=== PATIENT | female | born 1930 | race Caucasian/White ===

== ENCOUNTER 2017-07-23 06:09 | Inpatient (IN) | payer MEDICARE, OTHER ==
[~2017-07-23] VITALS: Ht 162.6 cm; Wt 69.4 kg
[~2017-07-23 06:09] MED LIST: AMOXICILLIN 50500 M1; AMOXICILLIN 50500 MG PO; ASPIRIN EC81 M1 PO; ASTELIN30 ML; B12INJ SUBQ; ERYTHROMYCIN250 M1 PO; FLEXERIL PO; FLUZONE 2045 MCG/011; GABAPENTIN 100100 MG PO; GABAPENTIN100 MG PO; LAMICTAL 25 MG25 M1 PO; LEVAQUIN 500 M500 MG PO; MEDROLDOSEPACK PO; MULTIVITAMINS PO; NASAL MOISTURIZ30 ML; OMEPRAZOLE 20 M20 MG PO; PNEUMOVAX25 MCG/0.5; PREDNISONE 20 M20 M1 PO; PRINIVIL20 MG PO; PROTONIX40 M1 PO; REGLAN 5 MG TAB5 M1; SINGULAIR 10 MG10 M1 PO; VENTOLIN HFA 1818 GM INH; VITAMIN D3400 UNI1
[2017-07-23 06:14] VITALS: BP 179/103
[2017-07-23 07:05] LABS: ABSOLUTE BASOPHILS 0.1 thou/uL (0.0-0.2); ABSOLUTE LYMPHOCYTES 2.4 thou/uL (0.8-5.3); ABSOLUTE MONOCYTES 0.5 thou/uL (0.0-1.2); ABSOLUTE NEUTROPHILS 3.8 thou/uL (1.6-8.1); BASOPHILS 1.4 %; EOSINOPHILS 0.5 %; HEMATOCRIT 43.8 % (37.0-47.0); HEMOGLOBIN 14.6 gm/dL (12.0-15.0); LYMPHOCYTES 34.8 %; MCH 31.7 pg (26.0-34.0); MCHC 33.3 g/dL (28.0-37.0); MONOCYTES 7.7 %; MPV 8.1 fl. (7.2-11.1); NUCLEATED RBCS 0 /100WBC; PLATELET COUNT* 252 thou/uL (150-400); POLYS 55.6 %; RBC 4.61 mil/uL (4.20-5.00); RDW-CV 13.8 % (10.5-14.5); WBC 6.9 thou/uL (4.0-11.0)
[2017-07-23 07:09] LABS: CREATININE 1.1 mg/dL (0.6-1.3); POTASSIUM 4.2 mmol/L (3.5-5.1)
[2017-07-23 07:14] LABS: ALBUMIN 3.6 g/dL (3.4-5.0); TOTAL BILIRUBIN 0.5 mg/dL (<0.1-1.0); TOTAL PROTEIN 6.9 g/dL (6.4-8.2)
[2017-07-23 07:50] LABS: APTT 24.3 Seconds (25.0-31.3); PROTIME 9.9 Seconds (9.20-11.50)
[2017-07-23 07:53] LABS: NT-PRO BRAIN NAT PEPTIDE 766 pg/mL (<300); TROPONIN-I LEVEL <0.06 ng/mL (<0.06)
[2017-07-23 08:41] VITALS: BP 147/101
[2017-07-23 09:00] VITALS: BP 158/72
--- NOTE | 2017-07-23 09:30 | NUR ---
PATIENT CAME TO THE FLOOR FROM THE ER IN STABLE CONDITION. PATIENTS DAUGHTER IS IN THE ROOM. PATIENT TRANSFERRED FROM THE CART TO THE BED WITH A STEADY GAIT. ADMISSION ASSESSMENT, EDUCATION AND ORIENTTATION TO THE ROOM DONE WTIH ALL QUESTIONS ANSWERED. CALL LIGHT IS IN REACH, WILL CONTINUE TO MONITOR.
--- NOTE | 2017-07-23 15:00 | EKG ---
[place] [address] ELECTROCARDIOGRAM REPORT Name: DES RUVALCABA Room: [address] IN ..#: [id number] Admission: 07/23/17 Attend Phys: Bill Severino, Discharge: Date of : [birth year] Report #: [id number] THIS REPORT FOR: //name// [facility] ED Test Date: 2017-07-23 Test Time: 07:34:13 Pat Name: DES RUVALCABA Department: Room: [facility] Gender: F Velvet Cutter: MS : 1930 Requested By: Kev Mendosa Order Number: [id number] MD: Ruben Rodriguez Measurements Intervals [place] Rate: 90 P: 80 CT: 196 QRS: 19 QRSD: 108 T: 61 QT: 360 QTc: 441 Interpretive Statements Sinus rhythm Ventricular premature complex Left atrial enlargement LVH with secondary repolarization abnormality Compared to ECG 09/23/2013 04:07:44 Ventricular premature complex(es) now present Atrial abnormality now present Left ventricular hypertrophy now present Early repolarization now present Sinus bradycardia no longer present ST (T wave) deviation no longer present Electronically Signed On 07-23-2017 14:59:57 CDT by Ruben Rodriguez [email or web address] <ELECTRONICALLY SIGNED> By: Ruben Rodriguez MD, FACC 07/23/17 1459 3 3 Ruben Rodriguez MD, [facility] /EPI
[2017-07-23 15:59] VITALS: BP 113/61
--- NOTE | 2017-07-23 17:33 | NUR ---
PATIENT IS ALERT AND ORIENTED TODAY VERY PLEASANT. NO COMPLAINTS OF ANY KIND TODAY. SEVERAL QUESTIONS REGARDING CARE THAT HAS BEEN ANSWERED. VITAL SIGNS STABLE ON 2 LITERS OF OXYGEN THROUGH NASAL CANNULA. CALL LIGHT IS IN REACH, WILL CONTINUE TO MONITOR.
[2017-07-24 01:59] VITALS: BP 130/66
[2017-07-24 04:17] LABS: HEMATOCRIT 40.5 % (37.0-47.0); HEMOGLOBIN 14.1 gm/dL (12.0-15.0); MCH 32.6 pg (26.0-34.0); MCHC 34.7 g/dL (28.0-37.0); MCV 94.1 fL (80.0-100.0); MPV 8.3 fl. (7.2-11.1); RBC 4.31 mil/uL (4.20-5.00); RDW-CV 14.1 % (10.5-14.5); WBC 9.2 thou/uL (4.0-11.0)
[2017-07-24 04:31] LABS: CALCIUM 10.2 mg/dL (8.5-10.1); CREATININE 1.3 mg/dL (0.6-1.3); MAGNESIUM 2.2 mg/dL (1.8-2.4)
[2017-07-24 04:33] LABS: POTASSIUM 5.9 mmol/L (3.5-5.1)
--- NOTE | 2017-07-24 06:16 | NUR ---
ASSESSMENT COMPLETE. PT SLEPT THROUGH THE NIGHT WITHOUT ANY CONCERNS. PT IS ON ROOM AIR WITH [place]QAUTE SATS. PT REPORTS DRY, NON PROD COUGH DURING THE NIGHT. PT HAS IV IN RIGHT FOREARM, SALINE LOCKED AND FLUSHES WITHOUT DIFFICULTY. PT SKIN INTACT. PT IS UP AD LONG WITH STEADY GAIT. PT DENIES PAIN AND N/V. SEE ASSESSMENT AND VITALS FOR OTHER DETAILS. CALL LIGHT WITHIN REACH, WILL CONTINUE PLAN OF CARE
[2017-07-24 08:35] VITALS: BP 125/68
--- NOTE | 2017-07-24 11:04 | NUR ---
CM SPOKE TO THE PATIENT TO DISCUSS HOME SITUATION, DISCHARGE PLANNING, AND TO INFORM OF THE ROLE OF CM. PATIENT ALERT, ORIENTED, AND INDEPENDENT WITH ADL'S. PATIENT IS VERY ACTIVE, AND DRIVES. PATIENT OWNS A WALKER AND CANE,BUT DOES NOT USE THEM. PATIENT HAS NO HX OF HH OR SNF. CM WILL REMAIN AVAILABLE TO ASSIST AND FOLLOW NEEDED.
[2017-07-24 16:03] VITALS: BP 135/75
--- NOTE | 2017-07-24 17:15 | NUR ---
PATIENT HAS BEEN A/O X 4 THIS SHIFT. PATIENT GIVEN TYLENOL PER REQUEST THIS AFTERNOON WITH RELIEF NOTED. STARTED ON TESSALON PERLES THIS SHIFT WITH RELIEF. IV ANTIBIOTICS INFUSED. PATIENT UP AD LONG IN ROOM AND HALLWAYS. TO HAVE REPEAT CHEST XRAY IN AM AND REPEAT LABS. HOURLY ROUNDING COMPLETED. CALL LIGHT WITHIN REACH. WILL CONTINUE WITH PLAN OF CARE.
[2017-07-24 21:15] VITALS: BP 115/66
[2017-07-25 04:17] LABS: HEMATOCRIT 42.1 % (37.0-47.0); HEMOGLOBIN 14.6 gm/dL (12.0-15.0); MCH 32.5 pg (26.0-34.0); MCHC 34.6 g/dL (28.0-37.0); MPV 8.6 fl. (7.2-11.1); RBC 4.48 mil/uL (4.20-5.00); RDW-CV 13.6 % (10.5-14.5)
[2017-07-25 04:30] LABS: CALCIUM 9.7 mg/dL (8.5-10.1); CREATININE 1.3 mg/dL (0.6-1.3); MAGNESIUM 2.3 mg/dL (1.8-2.4); POTASSIUM 4.7 mmol/L (3.5-5.1)
--- NOTE | 2017-07-25 05:47 | NUR ---
PT SLEPT MOST OF SHIFT. ASSESSMENT DOCUMENTED. MEDS GIVEN PER E-MAR. IV PATENT. NO REPORTS OF PAIN OR NAUSEA. PT UP AD LONG IN ROOM. WILL CONTINUE WITH PLAN OF CARE.
[2017-07-25 08:15] VITALS: BP 113/68
[2017-07-25 16:00] VITALS: BP 122/72
--- NOTE | 2017-07-25 16:47 | NUR ---
PATIENT HAS BEEN A/O X 4 THIS SHIFT. CONTINUES ON ROOM AIR AND RT TREATMENTS. GIVEN TESSALON PERLE THIS AM WITH RELIEF. SALINE LOCK PATENT AND ANTIBIOTICS INFUSED ORDERED. IV STEROIDS GIVEN ORDERED. UP AD LONG IN ROOM. SHOWERED THIS SHIFT AND AMBULATED TO SHOWER ROOM FROM PATIENT ROOM. CHEST XRAY COMPLETED THIS SHIFT. PATIENT TO CONTRERAS TO ORAL STEROIDS IN AM. DC PLANNING IN PROCESS, TENTATIVE DISCHARGE IN THE NEXT 1-[address] CHIANG. HOURLY ROUNDING COMPLETED. CALL LIGHT WITHIN REACH. WILL CONTINUE WITH PLAN OF CARE.
[2017-07-25 22:00] VITALS: BP 118/60
--- NOTE | 2017-07-26 05:24 | NUR ---
PATIENT SLEPT WELL DURING THIS SHIFT. PT UP TO BATHROOM WITH SLOW STEADY GAIT. PT WITH SALINE LOCK IN RT FOREARM. PT DENIES PAIN/NAUSEA ON THIS SHIFT. PT IS ON ROOM AIR. PT WITH DIMINISHED LUNG SOUNDS WITH WHEEZES. PT ABLE TO SWALLOW PILLS WITH NO PROBLEMS. PT DENIES NEEDS AT THIS TIME. FREQUENTLY USED ITEMS AND CALL LIGHT WITHIN REACH. SIDERAILS UPX2. WILL CONTINUE TO MONITOR.
[2017-07-26 08:09] VITALS: BP 133/77
--- NOTE | 2017-07-26 12:07 | NUR ---
ORDERS RECEIVED. CHART REVIEWED. NSG NOTES INDICATE PT HAS BEEN UP AD LONG IN ROOM AND IN HALLS WITH STEADY GAIT. NSG AND PT CONFIRMED. PT HAS NO CONCERNS REGARDING MOBILITY. NO ACUTE P.T. INTERVENTION INDICATED AT THIS TIME.
[2017-07-26 14:50] VITALS: BP 122/63
--- NOTE | 2017-07-26 16:42 | NUR ---
SW met with pt to discuss safe dc planning and presented to pt that possible for pt to be ready to dc home tomorrow or by Monday. Pt expressed understanding and did not express any need for any DME or HH services. Pt did not present any concerns and was hopeful to be completely clear--from a congested feeling in her chest when she coughs prior to dc home but pt also said that she understood that she may be able to continue to heal at home. SW to continue to remain available to assist with any dc needs.
--- NOTE | 2017-07-26 20:19 | NUR ---
PATIENT HAS BEEN A/O X 4 THIS SHIFT. GIVEN TYLENOL THIS SHIFT FOR PLEURITIC PAIN WITH RELIEF. CONTINUES ON ROOM AIR AND SCHEDULED RT TREATMENTS. SALINE LOCK PATENT, IV ANTIBIOTICS INFUSED. PT/OT ORDERED. UP AD LONG IN ROOM AND AMBULATING IN HALLWAYS. REPEAT LABS ORDERED FOR THE AM. TENTATIVE DISCHARGE ON MONDAY. HOURLY ROUNDING COMPLETED. CALL LIGHT WITHIN REACH. WILL CONTINUE WITH PLAN OF CARE.
[2017-07-27 00:21] VITALS: BP 128/86
[2017-07-27 04:21] LABS: HEMATOCRIT 41.9 % (37.0-47.0); HEMOGLOBIN 14.2 gm/dL (12.0-15.0); MCH 32.1 pg (26.0-34.0); MCV 94.5 fL (80.0-100.0); MPV 8.2 fl. (7.2-11.1); NUCLEATED RBCS 0 /100WBC; PLATELET COUNT* 311 thou/uL (150-400); RBC 4.43 mil/uL (4.20-5.00); RDW-CV 13.7 % (10.5-14.5); WBC 13.4 thou/uL (4.0-11.0)
[2017-07-27 04:29] LABS: ALBUMIN 3.1 g/dL (3.4-5.0); CALCIUM 9.6 mg/dL (8.5-10.1); CREATININE 1.2 mg/dL (0.6-1.3); POTASSIUM 4.6 mmol/L (3.5-5.1); TOTAL BILIRUBIN 0.3 mg/dL (<0.1-1.0); TOTAL PROTEIN 6.3 g/dL (6.4-8.2)
[2017-07-27 05:56] LABS: ABSOLUTE EOSINOPHILS 0.1 thou/uL (0.0-0.7); ABSOLUTE LYMPHOCYTES 4.7 thou/uL (0.8-5.3); ABSOLUTE MONOCYTES 1.3 thou/uL (0.0-1.2); ABSOLUTE NEUTROPHILS 7.2 thou/uL (1.6-8.1); ANISOCYTOSIS 1+; PLATELET ESTIMATE ADEQUATE; POIKILOCYTOSIS 1+
--- NOTE | 2017-07-27 06:16 | NUR ---
ASSESSMENT COMPLETE. PT SLEPT THROUGH THE NIGHT WITHOUT ANY CONCERNS. PT HAS ADEQUATE SATS ON ROOM AIR. PT DENIES PAIN. PT IS UP AD LONG WITH STEADY GAIT. SEE ASSESSMENT AND VITALS FOR OTHER DETAILS. CALL LIGHT WITHIN REACH, WILL CONTINUE PLAN OF CARE
[2017-07-27 08:25] VITALS: BP 129/70
--- NOTE | 2017-07-27 12:50 | NUR ---
ORDER RECEIVED FOR "OT EVALUATION AND TREATMENT". COMPLETED CHART REVIEW AND SPOKE BRIEFLY WITH PATIENT. PT HAS BEEN UP AD LONG. PT STATING THAT SHE HAS BEEN TAKING SPONGEBATHES AND USING TOILET WITHOUT ASSIST. PT STATING THAT SHE DOES NOT HAVE NEED FOR OCCUPATIONAL THERAPY SERVICES AT THIS TIME. PLAN TO D/C FROM SKILLED OT SERVICES AT THIS TIME.
[2017-07-27 15:49] VITALS: BP 134/78
--- NOTE | 2017-07-27 18:23 | NUR ---
PATIENT RESTING IN BED. PATIENT DENIES ANY PAIN. PAIENT IS UP AD LONG IN ROOM AND WALKS IN HALLS. PATIENT IS ON ROOM AIR. LUNG SOUUNDS ARE CRACKLY ON RIGHT AND HAS COMPLAINTS OF PAIN WITH COUGHING BUT DENIES NEED FOR MEDICATION. PATIENT DENIES ANY NEEDS AT THIS TIME. CALL LIGHT WITHIN REACH. WILL CONTINUE TO MONITOR.
[2017-07-27 19:51] VITALS: BP 117/69
[2017-07-27 23:30] VITALS: BP 118/59
--- NOTE | 2017-07-28 05:50 | NUR ---
ASSUMED CARE OF PT FROM GEOVANNA MCCORMACK AT 0000, I COCNCUR WITH HER ASSESSMENT. VS STABLE. PT VOICED NO COMPLAINTS AND SLEPT THROUGH THE NIGHT. WILL CONTINUE PLAN OF CARE.
[2017-07-28 16:16] VITALS: BP 123/74
--- NOTE | 2017-07-28 17:54 | NUR ---
PATIENT IS ALERT AND ORIENTED TODAY VERY PLEASANT, UP AD LONG IN ROOM, NO COMPLAINTS TODAY. VITAL SIGNS STABLE ON ROOM AIR. CALL LIGHT IS IN REACH, WILL CONTINUE TO MONTIOR.
[2017-07-28 19:45] VITALS: BP 111/66
[2017-07-29 05:08] LABS: CALCIUM 9.6 mg/dL (8.5-10.1); CREATININE 1.2 mg/dL (0.6-1.3); POTASSIUM 5.3 mmol/L (3.5-5.1)
[2017-07-29 05:09] LABS: ABSOLUTE BASOPHILS 0.1 thou/uL (0.0-0.2); ABSOLUTE EOSINOPHILS 0.1 thou/uL (0.0-0.7); ABSOLUTE NEUTROPHILS 10.5 thou/uL (1.6-8.1); BASOPHILS 0.6 %; EOSINOPHILS 0.5 %; HEMATOCRIT 44.8 % (37.0-47.0); HEMOGLOBIN 14.7 gm/dL (12.0-15.0); LYMPHOCYTES 25.6 %; MCH 31.8 pg (26.0-34.0); MCHC 32.9 g/dL (28.0-37.0); MCV 96.6 fL (80.0-100.0); MONOCYTES 6.3 %; MPV 8.7 fl. (7.2-11.1); NUCLEATED RBCS 0 /100WBC; PLATELET COUNT* 303 thou/uL (150-400); RBC 4.64 mil/uL (4.20-5.00); RDW-CV 13.9 % (10.5-14.5); WBC 15.6 thou/uL (4.0-11.0)
--- NOTE | 2017-07-29 05:45 | NUR ---
PT SLEPT MOST OF SHIFT. ASSESSMENT DOCUMENTED. MEDS GIVEN PER E-MAR. IV PATENT. PT SCRAPED ARM ON BEDSIDE TABLE AND AQUIRED SKIN TEAR. PICTURE TAKEN, WOUND CLEANSED AND DRESSED. WILL CONTINUE WITH PLAN OF CARE.
[2017-07-29 08:05] VITALS: BP 126/67
[2017-07-29 16:00] VITALS: BP 105/64
--- NOTE | 2017-07-29 16:58 | NUR ---
PATIENT RESTING IN BED. PATIENT IS UP AD LONG IN ROOM. PATIENT DENIES ANY PAIN. PATIENT HAS GOOD APPETITE. PATIENT IS ON ROOM AIR. PATIENT DENIES ANY NEEDS AT THIS TIME. CALL LIGHT WITHIN REACH. WILL CONTINUE TO MONITOR.
[2017-07-29 20:15] VITALS: BP 95/59
[2017-07-30 04:12] LABS: HEMATOCRIT 41.3 % (37.0-47.0); MCHC 33.8 g/dL (28.0-37.0); MCV 94.8 fL (80.0-100.0); MPV 7.8 fl. (7.2-11.1); RBC 4.36 mil/uL (4.20-5.00); RDW-CV 13.7 % (10.5-14.5); WBC 15.9 thou/uL (4.0-11.0)
[2017-07-30 04:24] LABS: CALCIUM 9.3 mg/dL (8.5-10.1); CREATININE 1.3 mg/dL (0.6-1.3); MAGNESIUM 2.3 mg/dL (1.8-2.4); POTASSIUM 5.1 mmol/L (3.5-5.1)
--- NOTE | 2017-07-30 06:27 | NUR ---
PT SLEPT MOST OF SHIFT. ASSESSMENT DOCUMENTED. MEDS GIVEN PER E-JUN. IV PATENT. WOUND ON RIGHT ARM CLEANSED AND REDRESSED. WILL CONTINUE WITH PLAN OF CARE.
[2017-07-30 08:35] VITALS: BP 105/66
[2017-07-30] MEDS ORDERED: VENTOLIN HFA 1818 GM INH (09:13)
[2017-07-30] MEDS ORDERED: AZITHROMYCIN 2250 MG PO (09:13)
[2017-07-30] MEDS ORDERED: BENZONATATE100 MG PO (09:13)
[2017-07-30] MEDS ORDERED: PREDNISONE 10 M10 M1 PO (09:13)
[2017-07-30] MEDS ORDERED: GUAIFENESIN DM1 EACH PO (09:13)
[2017-07-30] MEDS ORDERED: CEFDINIR300 MG PO (09:13)
[2017-07-30 10:34] VITALS: BP 105/66
--- NOTE | 2017-07-30 11:10 | NUR ---
PATIENT DISCHARGED TO HOME. DISCHARGE PAPERS REVIEWED AND SIGNED. PRESCRIPTIONS AND INFORMATION SHEETS GIVEN. IV REMOVED. PATIENT ASSISTED WITH PACKING BELONGINGS. PATIENT DENIES ANY FURTHER NEEDS. PATIENT TAKEN AMBULATORY TO EXIT. LEFT WITH DAUGHTER.
== END 2017-07-30 11:10 | disposition home or self-care (01) | DRG 177 ==
LOC: M.ERS 06:09 → M.3W 07:57 → M.TBA-ER 07:57 → M.3W 08:53
PROVIDERS: Family Medicine; Internal Medicine; Personal Emergency Response Attendant; ADMIT Family Medicine
DX: J15.6 Pneumonia due to other Gram-negative bacteria (principal); J96.01 Acute respiratory failure with hypoxia; I10 Essential (primary) hypertension; K21.9 Gastro-esophageal reflux disease without esophagitis; J98.01 Acute bronchospasm; Z90.5 Acquired absence of kidney; Z90.710 Acquired absence of both cervix and uterus; Z79.899 Other long term (current) drug therapy; Z85.528 Personal history of other malignant neoplasm of kidney; Z88.1 Allergy status to other antibiotic agents; Z88.5 Allergy status to narcotic agent; Z82.49 Family history of ischemic heart disease and other diseases of the circulatory system

== ENCOUNTER → 2018-01-03 | Outpatient (CLI) | payer MEDICARE, OTHER ==
[~2018-01-03] MED LIST changes: +AZITHROMYCIN 2250 MG PO; +BENZONATATE100 MG PO; +CEFDINIR300 MG PO; +GUAIFENESIN DM1 EACH PO; +PREDNISONE 10 M10 M1 PO
== END ==
LOC: M.RAD 08:07
DX: Z12.31 Encounter for screening mammogram for malignant neoplasm of breast (principal); I10 Essential (primary) hypertension; K21.9 Gastro-esophageal reflux disease without esophagitis

== ENCOUNTER 2018-07-04 19:00 | Emergency (ER) | payer MEDICARE, OTHER ==
[~2018-07-04] VITALS: Ht 152.4 cm; Wt 59.0 kg
[2018-07-04 19:59] LABS: ABSOLUTE BASOPHILS 0.1 thou/uL (0.0-0.2); ABSOLUTE EOSINOPHILS 0.1 thou/uL (0.0-0.7); ABSOLUTE LYMPHOCYTES 2.4 thou/uL (0.8-5.3); ABSOLUTE MONOCYTES 0.5 thou/uL (0.0-1.2); ABSOLUTE NEUTROPHILS 4.9 thou/uL (1.6-8.1); BASOPHILS 1.1 %; EOSINOPHILS 1.8 %; HEMATOCRIT 42.3 % (37.0-47.0); HEMOGLOBIN 14.3 gm/dL (12.0-15.0); LYMPHOCYTES 29.5 %; MCH 31.7 pg (26.0-34.0); MCHC 33.7 g/dL (28.0-37.0); MONOCYTES 6.6 %; NUCLEATED RBCS 0 /100WBC; PLATELET COUNT* 276 thou/uL (150-400); RDW-CV 14.7 % (10.5-14.5)
[2018-07-04 20:01] LABS: URINE BILIRUBIN NEGATIVE (Negative); URINE BLOOD 1+ (Negative); URINE CLARITY CLEAR; URINE COLOR YELLOW; URINE GLUCOSE-RANDOM NEGATIVE (Negative); URINE KETONES NEGATIVE (Negative); URINE NITRITE-REFLEX NEGATIVE (Negative); URINE PROTEIN NEGATIVE (Negative); URINE SPECIFIC GRAVITY <= 1.005 (1.005-1.030); URINE UROBILINOGEN 0.2 E.U./dl (0.2-1.0)
[2018-07-04 20:03] LABS: ALBUMIN 3.6 g/dL (3.4-5.0); CALCIUM 9.7 mg/dL (8.5-10.1); CREATININE 1.1 mg/dL (0.6-1.3); POTASSIUM 4.2 mmol/L (3.5-5.1); TOTAL BILIRUBIN 0.3 mg/dL (<0.1-1.0); TOTAL PROTEIN 6.4 g/dL (6.4-8.2)
[2018-07-04 20:06] LABS: URINE LEUKOCYTES-REFLEX 3+ (Negative)
[2018-07-04 20:14] LABS: BACTERIA-REFLEX 1-9 Few /HPF (None Seen); SQUAMOUS NONE SEEN /LPF (0-3); URINE RBC 0-2 Rare /HPF (0-2)
[2018-07-04 20:15] LABS: CASTS None Seen /LPF (None Seen); CRYSTALS None Seen /LPF (None Seen); WBC CLUMPS Few (None Seen)
[2018-07-04] MEDS ORDERED: MACROBID 100 M100 M2 PO (21:41)
[2018-07-04 22:01] VITALS: BP 171/93
== END 2018-07-04 22:04 | disposition home or self-care (01) ==
LOC: M.ERS 19:00
PROVIDERS: Nurse Practitioner Family
DX: N39.0 Urinary tract infection, site not specified (principal); K59.00 Constipation, unspecified; I10 Essential (primary) hypertension; G62.9 Polyneuropathy, unspecified; Z90.5 Acquired absence of kidney; Z88.5 Allergy status to narcotic agent; Z88.1 Allergy status to other antibiotic agents; Z85.528 Personal history of other malignant neoplasm of kidney

== ENCOUNTER 2018-07-07 04:42 | Emergency (ER) | payer MEDICARE, OTHER ==
[~2018-07-07] VITALS: Ht 167.6 cm; Wt 68.0 kg
[~2018-07-07 04:42] MED LIST changes: +MACROBID 100 M100 M2 PO
[2018-07-07 05:24] LABS: ABSOLUTE BASOPHILS 0.1 thou/uL (0.0-0.2); ABSOLUTE EOSINOPHILS 0.2 thou/uL (0.0-0.7); ABSOLUTE LYMPHOCYTES 2.6 thou/uL (0.8-5.3); ABSOLUTE MONOCYTES 0.5 thou/uL (0.0-1.2); ABSOLUTE NEUTROPHILS 4.3 thou/uL (1.6-8.1); EOSINOPHILS 3.2 %; HEMOGLOBIN 15.1 gm/dL (12.0-15.0); LYMPHOCYTES 33.3 %; MCH 31.2 pg (26.0-34.0); MCHC 33.6 g/dL (28.0-37.0); MONOCYTES 6.8 %; MPV 7.8 fl. (7.2-11.1); NUCLEATED RBCS 0 /100WBC; PLATELET COUNT* 285 thou/uL (150-400); POLYS 55.7 %; RBC 4.84 mil/uL (4.20-5.00); RDW-CV 14.8 % (10.5-14.5); WBC 7.7 thou/uL (4.0-11.0)
[2018-07-07 05:32] LABS: INR 0.9; PROTIME 9.7 Seconds (9.20-11.50)
[2018-07-07 05:36] LABS: ALBUMIN 3.9 g/dL (3.4-5.0); CALCIUM 10.2 mg/dL (8.5-10.1); CREATININE 1.2 mg/dL (0.6-1.3); MAGNESIUM 2.3 mg/dL (1.8-2.4); POTASSIUM 4.4 mmol/L (3.5-5.1); TOTAL BILIRUBIN 0.4 mg/dL (<0.1-1.0); TOTAL PROTEIN 6.9 g/dL (6.4-8.2)
[2018-07-07] MEDS ORDERED: LEVAQUIN 500 M500 MG PO (06:12)
[2018-07-07 06:26] VITALS: BP 149/81
== END 2018-07-07 06:27 | disposition home or self-care (01) ==
LOC: M.ERS 04:42
PROVIDERS: Emergency Medicine
DX: R20.2 Paresthesia of skin (principal); I10 Essential (primary) hypertension; G62.9 Polyneuropathy, unspecified; Z88.1 Allergy status to other antibiotic agents; Z88.5 Allergy status to narcotic agent; Z85.528 Personal history of other malignant neoplasm of kidney

== ENCOUNTER 2018-08-29 15:58 | Emergency (ER) | payer MEDICARE, OTHER ==
[~2018-08-29] VITALS: Ht 162.6 cm; Wt 67.6 kg
[2018-08-29] MEDS ORDERED: AMOXICILLIN 50500 MG PO (16:30)
[2018-08-29 16:42] VITALS: BP 167/90
== END 2018-08-29 16:45 | disposition home or self-care (01) ==
LOC: M.ERS 15:58
DX: H92.02 Otalgia, left ear (principal); I10 Essential (primary) hypertension; G62.9 Polyneuropathy, unspecified; Z90.710 Acquired absence of both cervix and uterus; Z90.5 Acquired absence of kidney; Z85.528 Personal history of other malignant neoplasm of kidney; Z88.1 Allergy status to other antibiotic agents; Z88.5 Allergy status to narcotic agent

== ENCOUNTER → 2018-10-17 | Outpatient (CLI) | payer MEDICARE, OTHER | LOC: M.MRI 08:01 | DX: M51.36 Other intervertebral disc degeneration, lumbar region (principal); M48.061 Spinal stenosis, lumbar region without neurogenic claudication; M51.27 Other intervertebral disc displacement, lumbosacral region; M12.88 Other specific arthropathies, not elsewhere classified, other specified site ==

== ENCOUNTER → 2019-01-15 | Outpatient (CLI) | payer MEDICARE, OTHER | LOC: M.RAD 13:14 | DX: Z12.31 Encounter for screening mammogram for malignant neoplasm of breast (principal) ==